=== PATIENT | female | born 1970 ===

== ENCOUNTER 2017-09-01 21:37 | Emergency (ER) | payer OTHER ==
[~2017-09-01] VITALS: Ht 154.9 cm; Wt 55.8 kg
== END 2017-09-01 22:31 | disposition home or self-care (01) ==
LOC: ER 21:37
DX: S90.872A Other superficial bite of left foot, initial encounter (principal); S90.871A Other superficial bite of right foot, initial encounter; L08.9 Local infection of the skin and subcutaneous tissue, unspecified; W57.XXXA Bitten or stung by nonvenomous insect and other nonvenomous arthropods, initial encounter; Y93.89 Activity, other specified; Y92.89 Other specified places as the place of occurrence of the external cause; Y99.8 Other external cause status

== ENCOUNTER 2020-02-12 09:26 | Emergency (ER) | payer OTHER ==
[~2020-02-12] VITALS: Ht 154.9 cm; Wt 57.6 kg
[2020-02-12] MEDS ORDERED: NASAL MIST126 ML (10:21)
[2020-02-12] MEDS ORDERED: ATORVASTATIN CA20 MG (10:21)
== END 2020-02-12 14:16 ==
LOC: ER 09:26
DX: R21 Rash and other nonspecific skin eruption (principal); T78.49XA Other allergy, initial encounter; X58.XXXA Exposure to other specified factors, initial encounter

== ENCOUNTER 2023-05-08 10:07 | Day surgery (SDC) | payer OTHER ==
[~2023-05-08] VITALS: Ht 154.9 cm; Wt 60.8 kg
[~2023-05-08 10:07] MED LIST: ATORVASTATIN CA20 MG; NASAL MIST126 ML
[2023-05-08] MEDS ORDERED: NAPR500T14 PO (14:23)
[2023-05-08] MEDS ORDERED: MORGIDOX100 MG PO (14:23)
== END 2023-05-08 17:10 | disposition home or self-care (01) ==
LOC: CIR.AMB 10:07
PROVIDERS: ATTEND Obstetrics & Gynecology
DX: N84.0 Polyp of corpus uteri (principal); N95.0 Postmenopausal bleeding; D25.0 Submucous leiomyoma of uterus; N92.5 Other specified irregular menstruation; Z20.822 Contact with and (suspected) exposure to COVID-19; I10 Essential (primary) hypertension

== ENCOUNTER 2024-04-24 13:22 | Emergency (ER) | payer OTHER ==
[~2024-04-24] VITALS: Ht 154.9 cm; Wt 59.9 kg
[~2024-04-24 13:22] MED LIST changes: +MORGIDOX100 MG PO; +NAPR500T14 PO
[2024-04-24] MEDS ORDERED: KETOROLAC TROMETHAMINE 60 MG VIAL IM ONE ×2 (14:15→14:40)
[2024-04-24] MEDS ORDERED: ORPHENADRINE CITRATE 30 MG/ML AMPUL IM ONE (14:15)
[2024-04-24] MEDS ORDERED: ORPHENADRINE CITRATE 30 MG/ML AMPUL ONE (14:40)
== END 2024-04-24 17:49 | disposition home or self-care (01) ==
LOC: ER 13:22
DX: M54.9 Dorsalgia, unspecified (principal); I10 Essential (primary) hypertension; Z88.1 Allergy status to other antibiotic agents